=== PATIENT | female | born 1995 | race Caucasian/White ===

== ENCOUNTER → 2019-08-16 | Outpatient (CLI) | payer BC ==
[2019-08-16 13:59] LABS: Basophils # (A) 0.1 k/uL (0-0.2); Basophils % (A) 1 %; Eosinophils # (A) 0.4 k/uL (0-0.7); Eosinophils % (A) 4 %; HCT 42.8 % (34.0-46.0); HGB 13.7 gm/dL (11.4-16.0); Lymphocytes # (A) 3.2 k/uL (1.0-4.8); Lymphocytes % (A) 37 %; MCH 30.2 pg (25.0-35.0); MCHC 31.9 g/dL (31.0-37.0); MCV 94.5 fL (80.0-100.0); Mean Platelet Volume 6.6; Monocytes # (A) 0.3 k/uL (0-1.0); Monocytes % (A) 3 %; Neutrophils # (A) 4.6 k/uL (1.3-7.7); Neutrophils % (A) 52 %; Platelet Count 336 k/uL (150-450); RBC 4.53 m/uL (3.80-5.40); RDW 13.4 % (11.5-15.5); WBC 8.7 k/uL (3.8-10.6)
[2019-08-16 18:34] LABS: Iron Saturation 18.01 (12.00-45.00)
[2019-08-16 18:42] LABS: Ferritin 67.8 ng/mL (10.0-291.0)
[2019-08-16 18:54] LABS: African American GFR (CKD) 147.9 (60.0-200.0); Albumin/Globulin Ratio 1.92 (1.60-3.17); Alpha Fetoprotein, Tumor Mkr <2.5 ng/mL (0.0-7.9); Anion Gap 13.6 mmol/L (4.00-12.00); BUN/Creat Ratio 18.33 Ratio (12.00-20.00); Calcium 10.1 mg/dL (8.7-10.3); Carbon Dioxide 26.4 mmol/L (21.6-31.8); Globulin 2.6 g/dL (1.6-3.3); Potassium 4.4 mmol/L (3.5-5.5); Total Bilirubin 0.3 mg/dL (0.2-1.2); Total Protein 7.6 g/dL (6.2-8.2)
[2019-08-16 19:44] LABS: Hepatitis A Antibody IgM Non-Reactive (Non-Reactive); Hepatitis B Core IgM Non-Reactive (Non-Reactive); Hepatitis B Surface Antigen Non-Reactive (Non-Reactive); Hepatitis C IgG Antibody Non-Reactive (Non-Reactive)
[2019-08-16 21:36] LABS: Gliadin AB IgA, Deaminated NEGATIVE (NEGATIVE); Gliadin AB IgA, Unit <0.2 U/mL; Gliadin AB IgG, Deaminated NEGATIVE (NEGATIVE)
[2019-08-17 11:29] LABS: Liver/Kidney Microsome Antibod 1.3 UNITS (<=20)
== END | disposition home or self-care (01) ==
LOC: LABWHC1 11:27
PROVIDERS: ATTEND Internal Medicine
DX: R74.8 Abnormal levels of other serum enzymes (principal); E03.9 Hypothyroidism, unspecified
CPT/HCPCS: 36415; 80053; 80074; 82103; 82105; 82390; 82728; 83516; 83540; 83550; 84443; 85025; 86038; 86376

== ENCOUNTER 2019-09-12 07:04 | Day surgery (SDC) | payer BC ==
[2019-09-08 11:20] VITALS: BMI 43.9
[2019-09-12] MEDS ORDERED: LACTATED RINGERS 1,000 ML IV SCH (07:09)
[2019-09-12 07:24] VITALS: RESP 16; TEMP 97.7
[2019-09-12] MEDS ORDERED: LACTATED RINGERS 1,000 ML IV ONE (07:29)
[2019-09-12] MEDS ORDERED: LIDOCAINE 1% INJ 10MG/ML (20 ML MDV) ONE (07:34)
[2019-09-12] MEDS ORDERED: PROPOFOL 10 MG/ML 20 ML VIAL IV ONE (07:34)
--- NOTE | 2019-09-12 08:00 | P.PCN ---
Date of Procedure: 09/12/19 Description of Procedure: BRIEF HISTORY: Patient is a 24-year-old, pleasant, female who presents for evaluation of symptoms of GERD. Patient reports current treatment with omeprazole therapy 30 minutes prior to dinner and Pepcid for breakthrough symptoms. She continues to have frequent symptoms of breakthrough nausea and reflux. PROCEDURE PERFORMED: Esophagogastroduodenoscopy with biopsy. PREOPERATIVE DIAGNOSIS: GERD. ESTIMATED BLOOD LOSS: Minimal. IV sedation per anesthesia. PROCEDURE: After informed consent was obtained, the patient was brought into the endoscopy unit. IV sedation was administered by Anesthesia under continuous monitoring. Initially the Olympus GIF-190 video endoscope was inserted into the mouth. Esophagus intubated without any difficulty. It was gradually advanced into the stomach and duodenum and carefully examined. The bulb and the second part of the duodenum appeared normal, with biopsies taken. The scope at this time was withdrawn to the stomach, adequately insufflated with air, and upon careful examination, mucosa of the antrum, body, cardia and the fundus appeared normal, with linear areas of erythema in the antrum and body suggestive of mild gastritis with biopsies of antrum and body taken. The scope was then withdrawn into the esophagus. The GE junction was located at 36 cm from the incisors, and biopsies. The esophagus appeared normal. There were no erosions or ulcerations seen and the patient tolerated the procedure well. IMPRESSION: 1. Mild gastritis antrum body, biopsied. 2. Biopsies of the GE junction and duodenum. RECOMMENDATIONS: The findings of this examination were discussed with the patient and her mother. Okay to resume omeprazole and Pepcid as needed for breakthrough symptoms. Okay to resume diet and medications. Follow-up in gastroenterology clinic as scheduled.
[2019-09-12 08:20] VITALS: BP 108/66; PULSE 94
== END 2019-09-12 08:55 | disposition home or self-care (01) ==
LOC: ORWHC2ENDO 07:04
PROVIDERS: ATTEND Internal Medicine
DX: K29.50 Unspecified chronic gastritis without bleeding (principal); K21.9 Gastro-esophageal reflux disease without esophagitis; E07.9 Disorder of thyroid, unspecified; R74.8 Abnormal levels of other serum enzymes; Z79.890 Hormone replacement therapy; Z79.899 Other long term (current) drug therapy; Z79.3 Long term (current) use of hormonal contraceptives
CPT/HCPCS: 81025; 88305; 43239; J2001; J2704